=== PATIENT | male | born 1945 | race Caucasian/White ===

== ENCOUNTER 2017-05-14 16:56 | Emergency (ER) | payer OTHER ==
[2017-05-14 17:25] VITALS: BP 120/65; PULSE 100; TEMP 98.6; BMI 47.4
--- NOTE | 2017-05-14 17:25 | PDOC ---
Rapid Medical Evaluation Time Seen by Provider: 05/14/17 17:21 Medical Evaluation: Allergies Allergy/AdvReac Type Severity Reaction Status Date / Time No Known Drug Allergies Allergy Verified 08/05/15 10:30 05/14/17 17:21 I have performed a brief in-person evaluation of this patient. The patient presents with a chief complaint of:LUE weakness x few days, no pain Pertinent physical exam findings:unable to abduct arm past 60 degrees on active ROM only, denies pain, strength intact I have ordered the following:labs The patient will proceed to the ED for further evaluation.
[2017-05-14 18:11] LABS: HEMOGLOBIN 14.9 GM/dL (11.7-16.9)
[2017-05-14 18:34] LABS: BASO % 0.2 % (0-2.0); EOS % 1.6 % (0-4.5); HEMATOCRIT 46.5 % (35.4-49); LYMPH % 19.9 % (8-40); MCH 29.9 pg (25.7-33.7); MCHC 32.1 g/dl (32.0-35.9); MEAN CELL VOLUME 93.2 fl (80-96); MEAN PLT VOLUME 7.9 fl (7.5-11.1); MONO % 5.9 % (3.8-10.2); NEUT % 72.4 % (42.8-82.8); PLATELET COUNT 269 K/MM3 (134-434); RDW 13.9 % (11.9-15.9); WHITE BLOOD COUNT 12.3 K/mm3 (4.0-10.0)
[2017-05-14 18:44] LABS: ALBUMIN 3.5 g/dl (3.4-5.0); ANION GAP 9 (8-16); BLOOD UREA NITROGEN 22 mg/dL (7-18); CALCIUM 9.5 mg/dL (8.5-10.1); CHLORIDE 102 mmol/L (98-107); CO2 27 mmol/L (21-32); GLUCOSE,RANDOM 119 mg/dL (74-106); POTASSIUM 3.8 mmol/L (3.5-5.1); SGOT/AST 20 U/L (15-37); SODIUM 138 mmol/L (136-145)
[2017-05-14 18:47] LABS: ALK PHOS 103 U/L (45-117); BILIRUBIN,TOTAL 0.6 mg/dL (0.2-1.0); CREATININE 1.2 mg/dL (0.7-1.3); SGPT/ALT 27 U/L (12-78); TOT PROT 7.7 g/dl (6.4-8.2)
[2017-05-14 19:00] LABS: URINE APPEARANCE CLEAR; URINE BILIRUBIN NEGATIVE (NEGATIVE); URINE BLOOD 1+ (NEGATIVE); URINE COLOR LTYELLOW; URINE GLUCOSE (UA) NEGATIVE (NEGATIVE); URINE KETONE TRACE (NEGATIVE); URINE LEUK ESTERASE NEGATIVE (NEGATIVE); URINE NITRITE NEGATIVE (NEGATIVE); URINE PROTEIN NEGATIVE (NEGATIVE); URINE UROBILINOGEN NEGATIVE mg/dL (0.2-1.0)
[2017-05-14 20:01] LABS: EPI CELLS RARE /HPF (FEW); URINE BACTERIA RARE /hpf (NONE SEEN); URINE MUCUS RARE
--- NOTE | 2017-05-14 21:23 | PDOC ---
History of Present Illness - General History Source: Patient Exam Limitations: No Limitations - History of Present Illness Initial Comments: 05/14/17 22:22 Patient is a 72 year old male with a significant past medical history of CVD, DM , who presents to the ED with complaints of left arm weakness that began 2 days ago. Patient reports suddenly noticing weakness in his left arm stating he suddenly realized he could not raise his arm past his shoulder. Patient states he received an ECG from his new PCP and was referred to the ED for abnormal ECG. Patient currently denies any pain associated to his left arm weakness. Denies chest pain, SOB. Denies nausea, vomiting. Denies fevers, chills. Denies trauma to affected area. Denies any other symptoms. Allergies: None Social history: Lives alone. No smoking. No alcohol. No illicit drugs. Surgical history: acute [place] 11, pacemaker 12, triple bypass 11, coronary artery disease, PMD: Dr. Jeremiah Abreu Electrical/Instrument Technician: Dr. Henderson <Rico Luke - Last Filed: 05/14/17 22:22> <Emily Ghotra - Last Filed: 05/14/17 23:53> - General Chief Complaint: Weakness Stated Complaint: PCP SENT Time Seen by Provider: 05/14/17 17:21 Past History <Rcio Luke - Last Filed: 05/14/17 22:22> - Past Medical History Anemia: Yes Asthma: No Cancer: No Cardiac Disorders: Yes CVA: No COPD: No CHF: No Dementia: No Diabetes: Yes GI Disorders: Yes (ANEMIA,BENIGN NEOPLASM OF THE COLON) Disorders: No HTN: Yes Hypercholesterolemia: Yes Kidney Stones: Yes Liver Disease: No Seizures: No Thyroid Disease: No - Surgical History Abdominal Surgery: No Appendectomy: No Cardiac Surgery: Yes (TRIPLE BY PASS,PACEMAKER) Cholecystectomy: No Lung Surgery: No Neurologic Surgery: No Orthopedic Surgery: No - Suicide/Smoking/Psychosocial Hx Smoking Status: No Smoking History: Never smoked Have you smoked in the past 12 months: No Number of Cigarettes Smoked Daily: 0 Information on smoking cessation initiated: No Hx Alcohol Use: No Drug/Substance Use Hx: No Substance Use Type: None Hx Substance Use Treatment: No <Emily Ghotra - Last Filed: 05/14/17 23:53> - Past Medical History Allergies/Adverse Reactions: Allergies Allergy/AdvReac Type Severity Reaction Status Date / Time No Known Drug Allergies Allergy Verified 05/14/17 17:24 Home Medications: Ambulatory Orders Metoprolol Succinate [Toprol XL -] 50 mg PO DAILY 10/06/14 Simvastatin [Zocor -] 80 mg PO HS 10/06/14 Aspirin [ASA -] 81 mg PO DAILY 08/05/15 Oxycodone HCl/Acetaminophen [Percocet 5-325 mg Tablet] 1 tab PO Q4H PRN Glyburide [Micronase -] 2.5 mg PO DAILY #30 tablet 08/07/15 Tamsulosin HCl [Flomax -] 0.4 mg PO DAILY@0830 #30 cap.er.24h 08/07/15 Review of Systems - Review of Systems Able to Perform ROS?: Yes Comments:: 05/14/17 22:22 CONSTITUTIONAL: Absent: fever, chills, diaphoresis, generalized weakness, malaise, loss of appetite HEENT: Absent: rhinorrhea, nasal congestion, throat pain, throat swelling, difficulty swallowing, mouth swelling, ear pain, eye pain, visual Changes CARDIOVASCULAR: Absent: chest pain, syncope, palpitations, irregular heart rate, lightheadedness , peripheral edema RESPIRATORY: Absent: cough, shortness of breath, dyspnea with exertion, orthopnea, wheezing, stridor, hemoptysis GASTROINTESTINAL: Absent: abdominal pain, abdominal distension, nausea, vomiting, diarrhea, constipation, melena, hematochezia GENITOURINARY: Absent: dysuria, frequency, urgency, hesitancy, hematuria, flank pain, genital pain MUSCULOSKELETAL: +Left arm weakness. Absent: myalgia, arthralgia, joint swelling SKIN: Absent: rash, itching, pallor HEMATOLOGIC/IMMUNOLOGIC: Absent: easy bleeding, easy bruising, lymphadenopathy, frequent infections ENDOCRINE: Absent: unexplained weight gain, unexplained weight loss, heat intolerance, cold intolerance NEUROLOGIC: Absent: headache, focal weakness or paresthesias, dizziness, unsteady gait, seizure, mental status changes, bladder or bowel incontinence PSYCHIATRIC: Absent: anxiety, depression, suicidal or homicidal ideation, hallucinations. All Other Systems: Reviewed and Negative <Rico Luke - Last Filed: 05/14/17 22:22> *Physical Exam - Vital Signs Last Vital Signs Temp Pulse Resp BP Pulse Ox 98.6 F 100 H 19 120/65 100 05/14/17 17:22 05/14/17 17:22 05/14/17 17:22 05/14/17 17:22 05/14/17 17:22 - Physical Exam Comments: 05/14/17 22:23 GENERAL: Well developed, well nourished. Awake and alert. No acute distress. HEENT: Normocephalic, atraumatic. PERRLA, EOMI. No conjunctival pallor. Sclera are non- icteric. Moist mucous membranes. Oropharynx is clear. NECK: Supple. Full ROM. No JVD. Carotid pulses 2+ and symmetric, without bruits. No thyromegaly. No lymphadenopathy. CARDIOVASCULAR: Regular rate and rhythm. No murmurs, rubs, or gallops. Distal pulses are 2+ and symmetric. PULMONARY: No evidence of respiratory distress. Lungs clear to auscultation bilaterally. No wheezing, rales or rhonchi. ABDOMINAL: Soft. Non-tender. Non-distended. No rebound or guarding. No organomegaly. Normoactive bowel sounds. MUSCULOSKELETAL Normal range of motion at all joints. No bony deformities or tenderness. No CVA tenderness. EXTREMITIES: +Left arm weakness. No cyanosis. No clubbing. No edema. No calf tenderness. SKIN: Warm and dry. Normal capillary refill. No rashes. No jaundice. NEUROLOGICAL: +No slurred speech. No neglect. No sight changes. No facial droop. Alert, awake, appropriate. Cranial nerves 2-12 intact. No deficits to light touch and temperature in face, upper extremities and lower extremities. No motor deficits in the in face, upper extremities and lower extremities. Normoreflexic in the upper and lower extremities. Normal speech. Toes are down- going bilaterally. Gait is normal without ataxia. PSYCHIATRIC: Cooperative. Good eye contact. Appropriate mood and affect. <Rico Luke - Last Filed: 05/14/17 22:22> - Vital Signs Last Vital Signs Temp Pulse Resp BP Pulse Ox 98.6 F 100 H 19 120/65 100 05/14/17 17:22 05/14/17 17:22 05/14/17 17:22 05/14/17 17:22 05/14/17 17:22 <Emily Ghotra - Last Filed: 05/14/17 23:53> ED Treatment Course - LABORATORY CBC & Chemistry Diagram: 05/14/17 17:50 05/14/17 17:50 - ADDITIONAL ORDERS Additional order review: Laboratory Results 05/14/17 05/14/17 17:50 17:40 Sodium 138 Potassium 3.8 Chloride 102 Carbon Dioxide 27 Anion Gap 9 BUN 22 H D Creatinine 1.2 D Creat Clearance w eGFR 59.35 Random Glucose 119 H Calcium 9.5 Total Bilirubin 0.6 AST 20 D ALT 27 D Alkaline Phosphatase 103 Total Protein 7.7 Albumin 3.5 Urine Color Ltyellow Urine Appearance Clear Urine pH 5.0 D Ur Specific [place] 1.019 Urine Protein Negative Urine Glucose (UA) Negative Urine Ketones Trace H Urine Blood 1+ H Urine Nitrite Negative Urine Bilirubin Negative Urine Urobilinogen Negative Ur Leukocyte Esterase Negative Urine WBC (Auto) 3 Urine RBC (Auto) 2 Ur Epithelial Cells Rare Urine Bacteria Rare Urine Mucus Rare 05/14/17 17:50 RBC 5.00 MCV 93.2 MCHC 32.1 RDW 13.9 MPV 7.9 Neutrophils % 72.4 Lymphocytes % 19.9 Monocytes % 5.9 Eosinophils % 1.6 Basophils % 0.2 <Rico Luke - Last Filed: 05/14/17 22:22> - LABORATORY CBC & Chemistry Diagram: 05/14/17 17:50 05/14/17 17:50 - ADDITIONAL ORDERS Additional order review: Laboratory Results 05/14/17 05/14/17 17:50 17:40 Sodium 138 Potassium 3.8 Chloride 102 Carbon Dioxide 27 Anion Gap 9 BUN 22 H D Creatinine 1.2 D Creat Clearance w eGFR 59.35 Random Glucose 119 H Calcium 9.5 Total Bilirubin 0.6 AST 20 D ALT 27 D Alkaline Phosphatase 103 Total Protein 7.7 Albumin 3.5 Urine Color Ltyellow Urine Appearance Clear Urine pH 5.0 D Ur Specific [place] 1.019 Urine Protein Negative Urine Glucose (UA) Negative Urine Ketones Trace H Urine Blood 1+ H Urine Nitrite Negative Urine Bilirubin Negative Urine Urobilinogen Negative Ur Leukocyte Esterase Negative Urine WBC (Auto) 3 Urine RBC (Auto) 2 Ur Epithelial Cells Rare Urine Bacteria Rare Urine Mucus Rare 05/14/17 17:50 RBC 5.00 MCV 93.2 MCHC 32.1 RDW 13.9 MPV 7.9 Neutrophils % 72.4 Lymphocytes % 19.9 Monocytes % 5.9 Eosinophils % 1.6 Basophils % 0.2 <Emily Ghotra - Last Filed: 05/14/17 23:53> Medical Decision Making - Medical Decision Making 05/14/17 23:26 82-year-old male saw his primary care doctor, Dr. Moore today [facility]. Because of concern of changes on EKG he was told to come to the emergency department. Patient denies any chest pain or shortness breath. There are narrowed exertional dyspnea. Past medical history significant for coronary artery disease, diabetes, hypertension. 72-year-old man, looking slightly disheveled ambulates at baseline with a cane said he came into the ER because he was told to come here for --EKG that shows paced rhythm at 87 bpm. When this is compared to a prior EKG in 08/05/2015. It again was a paced rhythm. Cardiac enzymes are negative. His state highway police officer is Dr. Hi Meyers <Emily Ghotra - Last Filed: 05/14/17 23:53> *DC/Admit/Observation/Transfer - Attestations Scribe Attestion: 05/14/17 22:24 Documentation prepared by Rico Luke, acting as medical physics professor for Emily Ghotra MD/DO. <Rico Luke - Last Filed: 05/14/17 22:22> <Emily Ghotra - Last Filed: 05/14/17 23:53> Diagnosis at time of Disposition: Left arm weakness - Discharge Dispostion Disposition: HOME Condition at time of disposition: Stable - Referrals Referrals: Jeremiah Abreu MD [Primary Care Provider] - - Patient Instructions Printed Discharge Instructions: DI for Arm Pain Additional Instructions: Please followup with your state highway police officer and also DR Abreu. Take your lab results and ct scan results with you when you see your doctor - Post Discharge Activity
--- NOTE | 2017-05-15 08:06 | EKG ---
Test Reason : Blood Pressure : / mmHG Vent. Rate : 086 BPM Atrial Rate : 086 BPM P-R Int : 240 ms QRS Dur : 156 ms QT Int : 420 ms P-R-T Axes : 073 -82 069 degrees QTc Int : 502 ms Atrial-sensed ventricular-paced rhythm with prolonged AV conduction ABNORMAL ECG WHEN COMPARED WITH ECG OF 05-AUG-2015 12:03, VENT. RATE HAS INCREASED BY 15 BPM Confirmed by OLGA DIAZ, DEVENDRA ([id number]) on 05/15/2017 8:06:09 AM Referred By: Confirmed By:DEVENDRA ESPINOZA MD
== END 2017-05-15 00:32 | disposition home or self-care (01) ==
LOC: JER 16:56
DX: M62.81 Muscle weakness (generalized) (principal); I25.10 Atherosclerotic heart disease of native coronary artery without angina pectoris; I10 Essential (primary) hypertension; Z95.1 Presence of aortocoronary bypass graft; E11.9 Type 2 diabetes mellitus without complications; E78.00 Pure hypercholesterolemia, unspecified; Z95.0 Presence of cardiac pacemaker; Z87.442 Personal history of urinary calculi
CPT/HCPCS: 36415; 70450-TC; 73030-TC-LT; 80053; 81003; 81015; 82550; 82553; 84484; 85025; 93005; 93010; 99282-25

== ENCOUNTER 2018-02-03 04:33 | Emergency (ER) | payer OTHER ==
[2018-02-03 05:07] VITALS: BMI 39.2
[2018-02-03] MEDS ORDERED: ACETAMINOPHEN 1000 MG/100 ML VIAL (NON FORMULARY) IVPB ONE (05:32)
[2018-02-03] MEDS ORDERED: SODIUM CHLORIDE 0.9% 500 ML INFUS.BAG IV ONE (05:35)
--- NOTE | 2018-02-03 05:49 | PDOC ---
History of Present Illness - General Chief Complaint: Pain, Acute Stated Complaint: R/O KIDNEY STONES Time Seen by Provider: 02/03/18 05:34 History Source: Patient Exam Limitations: No Limitations - History of Present Illness Initial Comments: 02/03/18 05:41 Patient is a 72-year-old male history of kidney stones, DM2, HTN, CAD, NM, HLD, CABG, pacemaker, complaining of "I think I have a kidney stone". Patient states for about 2-3 hours he started to have some suprapubic pain which progressively worsened and radiated to his right flank. His pain he says 5/10 dull associated nausea and vomiting 1 episode. He took nothing for the pain and presents here for evaluation. He denies fever, chills. PMD: Dr. Reyes URO: Dr. Lomax PMHX: as above PSCOHX: Neg cig, neg drugs, neg etoh ALL: NKDA GENERAL/CONSTITUTIONAL: [No fever or chills. No weakness. No weight change.] HEAD, EYES, EARS, NOSE AND THROAT: [No change in vision. No ear pain or discharge. No sore throat.] CARDIOVASCULAR: [No chest pain or shortness of breath.] RESPIRATORY: [No cough, wheezing, or hemoptysis.] GASTROINTESTINAL: [No nausea, vomiting, diarrhea or constipation. No rectal bleeding.] GENITOURINARY: [No dysuria, frequency, or change in urination.] MUSCULOSKELETAL: [No joint or muscle swelling or pain. No neck or back pain.] SKIN AND BREASTS: [No rash or easy bruising.] NEUROLOGIC: [No headache, vertigo, loss of consciousness, or loss of sensation.] PSYCHIATRIC: [No depression or anxiety.] ENDOCRINE: [No increased thirst. No abnormal weight change.] HEMATOLOGIC/LYMPHATIC: [No anemia, easy bleeding, or history of blood clots.] ALLERGIC/IMMUNOLOGIC: [No hives or skin allergy. No latex allergy.] GENERAL: [The patient is awake, alert, and fully oriented, in no acute distress. ] HEAD: [Normal with no signs of trauma.] EYES: [Pupils equal, round and reactive to light, extraocular movements intact, sclera anicteric, conjunctiva clear.] ENT: [Ears normal, nares patent, oropharynx clear without exudates. Moist mucous membranes.] NECK: [Normal range of motion, supple without lymphadenopathy, JVD, or masses.] LUNGS: [Breath sounds equal, clear to auscultation bilaterally. No wheezes, and no crackles.] HEART: [Regular rate and rhythm, normal S1 and S2 without murmur, rub.] ABDOMEN: [Soft, (+) tenderness suprapubic and right flank, normoactive bowel sounds. No guarding, no rebound. No masses.] EXTREMITIES: [Normal range of motion, no edema. No clubbing or cyanosis. No cords, erythema, or tenderness.] NEUROLOGICAL: [Cranial nerves II through XII grossly intact. Normal speech, normal gait.] PSYCH: [Normal mood, normal affect.] SKIN: [Warm, Dry, normal turgor, no rashes or lesions noted.] Past History - Past Medical History Allergies/Adverse Reactions: Allergies Allergy/AdvReac Type Severity Reaction Status Date / Time No Known Drug Allergies Allergy Verified 02/03/18 05:06 Home Medications: Ambulatory Orders Metoprolol Succinate [Toprol XL -] 50 mg PO DAILY 10/06/14 Simvastatin [Zocor -] 80 mg PO HS 10/06/14 Aspirin [ASA -] 81 mg PO DAILY 08/05/15 Glyburide [Micronase -] 2.5 mg PO DAILY #30 tablet 08/07/15 Tamsulosin HCl [Flomax -] 0.4 mg PO DAILY@0830 #30 cap.er.24h 08/07/15 Anemia: Yes Asthma: No Cancer: No Cardiac Disorders: Yes CVA: No COPD: No CHF: No Dementia: No Diabetes: Yes GI Disorders: Yes (ANEMIA,BENIGN NEOPLASM OF THE COLON) Disorders: No HTN: Yes Hypercholesterolemia: Yes Kidney Stones: Yes Liver Disease: No Seizures: No Thyroid Disease: No - Surgical History Abdominal Surgery: No Appendectomy: No Cardiac Surgery: Yes (TRIPLE BY PASS,PACEMAKER) Cholecystectomy: No Lung Surgery: No Neurologic Surgery: No Orthopedic Surgery: No - Suicide/Smoking/Psychosocial Hx Smoking Status: No Smoking History: Never smoked Have you smoked in the past 12 months: No Number of Cigarettes Smoked Daily: 0 Information on smoking cessation initiated: No Hx Alcohol Use: No Drug/Substance Use Hx: No Substance Use Type: None Hx Substance Use Treatment: No *Physical Exam - Vital Signs Last Vital Signs Temp Pulse Resp BP Pulse Ox 97.4 F L 90 19 160/77 97 02/03/18 04:35 02/03/18 04:35 02/03/18 04:35 02/03/18 04:35 02/03/18 04:35 ED Treatment Course - LABORATORY CBC & Chemistry Diagram: 02/03/18 05:30 02/03/18 05:30 Medical Decision Making - Medical Decision Making 02/03/18 05:41 Patient is a 72-year-old male history of kidney stones, DM2, HTN, CAD, NM, HLD, CABG, pacemaker, complaining of "I think I have a kidney stone". r/o renal colic , r/o uti will get labs, ua, tylenol, IVF re-eval for imaging 02/03/18 07:08 Laboratory Tests 02/03/18 02/03/18 05:30 05:30 WBC 15.8 H Hgb 14.5 Hct 43.0 Plt Count 267 Sodium 136 Potassium 4.6 Chloride 100 Carbon Dioxide 31 Anion Gap 5 L BUN 24 H Creatinine 1.8 H Random Glucose 161 H labs reviewed will send for noncon ctap urine pending endorsed to day team *DC/Admit/Observation/Transfer Diagnosis at time of Disposition: Abdominal pain Qualifiers: Abdominal location: right lower quadrant Qualified Code(s): R10.31 - Right lower quadrant pain - Discharge Dispostion Condition at time of disposition: Stable - Referrals Referrals: Jeremiah Abreu MD [Primary Care Provider] - - Patient Instructions - Post Discharge Activity
[2018-02-03 05:56] LABS: BASO % 0.4 % (0-2.0); EOS % 0.2 % (0-4.5); HEMOGLOBIN 14.5 GM/dL (11.7-16.9); LYMPH % 9.3 % (8-40); MCH 31.4 pg (25.7-33.7); MCHC 33.8 g/dl (32.0-35.9); MEAN PLT VOLUME 7.4 fl (7.5-11.1); MONO % 6.5 % (3.8-10.2); NEUT % 83.6 % (42.8-82.8); PLATELET COUNT 267 K/MM3 (134-434); RBC 4.63 M/mm3 (4.00-5.60); RDW 14.3 % (11.9-15.9); WHITE BLOOD COUNT 15.8 K/mm3 (4.0-10.0)
[2018-02-03 06:28] LABS: ANION GAP 5 MMOL/L (8-16); BLOOD UREA NITROGEN 24 mg/dL (7-18); CALCIUM 9.4 mg/dL (8.5-10.1); CHLORIDE 100 mmol/L (98-107); CO2 31 mmol/L (21-32); CREATININE 1.8 mg/dL (0.55-1.3); GLUCOSE,RANDOM 161 mg/dL (74-106); POTASSIUM 4.6 mmol/L (3.5-5.1); SODIUM 136 mmol/L (136-145)
[2018-02-03 08:18] LABS: URINE APPEARANCE CLEAR; URINE BILIRUBIN NEGATIVE (<2.0 mg/dL); URINE COLOR STRAW; URINE GLUCOSE (UA) 3+ (NEGATIVE); URINE KETONE TRACE (NEGATIVE); URINE LEUK ESTERASE NEGATIVE (NEGATIVE); URINE NITRITE NEGATIVE (NEGATIVE); URINE PROTEIN NEGATIVE (NEGATIVE); URINE UROBILINOGEN NEGATIVE mg/dL (0.2-1.0)
[2018-02-03 08:30] LABS: EPI CELLS RARE /HPF (FEW); URINE MUCUS RARE
[2018-02-03 10:20] VITALS: BP 143/70; PULSE 83; TEMP 97.7
== END 2018-02-03 10:55 | disposition home or self-care (01) ==
LOC: JER 04:33
PROC: 3E033NZ Introduction of Analgesics, Hypnotics, Sedatives into Peripheral Vein, Percutaneous Approach (ICD-10-PCS; principal; 2018-02-03)
DX: R10.9 Unspecified abdominal pain (principal); I25.10 Atherosclerotic heart disease of native coronary artery without angina pectoris; I10 Essential (primary) hypertension; Z95.1 Presence of aortocoronary bypass graft; Z95.0 Presence of cardiac pacemaker; E78.00 Pure hypercholesterolemia, unspecified; E11.9 Type 2 diabetes mellitus without complications; Z79.84 Long term (current) use of oral hypoglycemic drugs
CPT/HCPCS: 36415; 74176; 80048; 81003; 81015; 85025; 87086; 96374; 99284-25; J0131

== ENCOUNTER 2018-06-16 07:19 | Emergency (ER) | payer OTHER ==
[2018-06-16 07:36] VITALS: BP 132/59; PULSE 77; TEMP 97.6; BMI 38.9
--- NOTE | 2018-06-16 08:31 | PDOC ---
History of Present Illness - General Chief Complaint: Edema Stated Complaint: DIFFICULTY WALKING Time Seen by Provider: 06/16/18 07:50 History Source: Patient Exam Limitations: Clinical Condition - History of Present Illness Initial Comments: 06/16/18 08:25 Morbid obese patient with history of coronary artery disease with triple bypass and diabetes present with complaint of weakness in bilateral legs over 5 months now. Patient also reported his legs feel tired after walking half a block and has been persistent for 5 months now. Patient reports he did not come in early because also softball season and didn't have the time to come until now. Patient denies any pain, denies shortness of breath, chest pain, palpitations, dizziness. Denies any other symptoms Timing/Duration: other (5 months) Past History - Past Medical History Allergies/Adverse Reactions: Allergies Allergy/AdvReac Type Severity Reaction Status Date / Time No Known Drug Allergies Allergy Verified 02/03/18 05:06 Home Medications: Ambulatory Orders Metoprolol Succinate [Toprol XL -] 50 mg PO DAILY 10/06/14 Simvastatin [Zocor -] 80 mg PO HS 10/06/14 Aspirin [ASA -] 81 mg PO DAILY 08/05/15 Glyburide [Micronase -] 2.5 mg PO DAILY #30 tablet 08/07/15 Tamsulosin HCl [Flomax -] 0.4 mg PO HS #30 cap.er.24h 02/03/18 Anemia: Yes Asthma: No Cancer: No Cardiac Disorders: Yes CVA: No COPD: No CHF: No Dementia: No Diabetes: Yes GI Disorders: Yes (ANEMIA,BENIGN NEOPLASM OF THE COLON) Disorders: No HTN: Yes Hypercholesterolemia: Yes Kidney Stones: Yes Liver Disease: No Seizures: No Thyroid Disease: No - Surgical History Abdominal Surgery: No Appendectomy: No Cardiac Surgery: Yes (TRIPLE BY PASS,PACEMAKER) Cholecystectomy: No Lung Surgery: No Neurologic Surgery: No Orthopedic Surgery: No - Immunization History Immunization Up to Date: No - Suicide/Smoking/Psychosocial Hx Smoking Status: No Smoking History: Never smoked Have you smoked in the past 12 months: No Number of Cigarettes Smoked Daily: 0 Information on smoking cessation initiated: No Hx Alcohol Use: No Drug/Substance Use Hx: No Substance Use Type: None Hx Substance Use Treatment: No Review of Systems - Review of Systems Able to Perform ROS?: Yes Is the patient limited Kiswahili proficient: No Constitutional: Yes: Weakness (b/l legs). No: Chills, Fever, Malaise HEENTM: No: Symptoms Reported, See HPI, Eye Pain, Blurred Vision, Tearing, Recent change in vision, Double Vision, Cataracts, Ear Pain, Ocular Prothesis, Ear Discharge, Nose Pain, Nose Congestion, Tinnitus, Nose Bleeding, Hearing Loss , Throat Pain, Throat Swelling, Mouth Pain, Dental Problems, Difficulty Swallowing, Mouth Swelling, Other Respiratory: No: Symptoms reported, See HPI, Cough, Orthopnea, Shortness of Breath, SOB with Exertion, SOB at Rest, Stridor, Wheezing, Productive cough, Hemoptysis, Other Cardiac (ROS): No: Symptoms Reported, See HPI, Chest Pain, Edema, Irregular Heart Rate, Lightheadedness, Palpitations, Syncope, Chest Tightness, Other ABD/GI: No: Nausea, Vomiting Musculoskeletal: Yes: Muscle Weakness (b/l legs). No: Muscle Pain Integumentary: No: Symptoms Reported All Other Systems: Reviewed and Negative *Physical Exam - Vital Signs Last Vital Signs Temp Pulse Resp BP Pulse Ox 97.6 F 77 16 132/59 L 96 06/16/18 07:33 06/16/18 07:33 06/16/18 07:33 06/16/18 07:33 06/16/18 07:33 - Physical Exam Comments: 06/16/18 08:28 GENERAL: Well developed, well nourished. Awake and alert. No acute distress. CARDIOVASCULAR: Regular rate and rhythm. No murmurs, rubs, or gallops. PULMONARY: No evidence of respiratory distress. Lungs clear to auscultation bilaterally. No wheezing, rales or rhonchi. ABDOMINAL: Soft. Non-tender. Non-distended. No rebound or guarding. No organomegaly. Normoactive bowel sounds MUSCULOSKELETAL : mild tenderness over posterior right calf. No bony deformities EXTREMITIES: Bilateral peripheral dependent edema with mild discoloration to lateral aspect of bilateral ankles. No cyanosis. No clubbing. No pitting edema. Mild right calf tenderness. No increased warmth or erythema to bilateral lower extremities. SKIN: Warm and dry. Normal capillary refill. NEUROLOGICAL: Alert, awake, appropriate. No motor deficits in the lower extremities. Gait is normal without ataxia. PSYCHIATRIC: Cooperative. Good eye contact. Appropriate mood and affect. General Appearance: Yes: Nourished, Appropriately Dressed. No: Apparent Distress Moderate Sedation - Procedure Monitoring Vital Signs: Procedure Monitoring Vital Signs Temperature 97.6 F 06/16/18 07:33 Pulse Rate 77 06/16/18 07:33 Respiratory Rate 16 06/16/18 07:33 Blood Pressure 132/59 L 06/16/18 07:33 O2 Sat by Pulse Oximetry (%) 96 06/16/18 07:33 ED Treatment Course - LABORATORY CBC & Chemistry Diagram: 06/16/18 09:40 06/16/18 09:40 - RADIOLOGY Radiology Studies Ordered: Category Date Time Status DUPLEX VASCUL US-1 LEG [US] Stat Ultrasound 06/16/18 08:07 Ordered Medical Decision Making - Medical Decision Making 06/16/18 08:29 Patient with history of coronary artery disease and diabetes present with complaint of weakness of bilateral lower extremity for 5 months with no other symptoms. Exam significant for mild bilateral edema with no pitting and mild right calf muscle tenderness with discoloration to skin of bilateral ankles consistent with venous insufficiency. Symptoms likely venous insufficiency versus CHF versus DVT. Less likely DVT due to no increased warmth or erythema. CBC and chemistry and BNP labs ordered. Doppler of right lower extremity ordered to rule out DVT 06/16/18 12:54 CBC with no acute finding. Chemistry lab were no acute findings. Elevated BNP labs. Symptoms likely from undiagnosed CHF. Duplex shows no DVT. Stable for discharge with outpatient treatment with truck trailer mechanic given asymptomatic now. *DC/Admit/Observation/Transfer Diagnosis at time of Disposition: Peripheral edema CHF (congestive heart failure) Qualifiers: Heart failure type: unspecified Heart failure chronicity: unspecified Qualified Code(s): I50.9 - Heart failure, unspecified - Discharge Dispostion Disposition: HOME Condition at time of disposition: Stable Decision to Admit order: No - Referrals Referrals: Roni Reyes MD [Primary Care Provider] - Aakash Henderson MD [Staff Physician] - - Patient Instructions Printed Discharge Instructions: DI for Peripheral Edema -- Bilateral Additional Instructions: Ultrasound shows no DVT, labwork shows elevated labs which could indicate heart failure .Follow-up with referred truck trailer mechanic as soon as possible - Post Discharge Activity
[2018-06-16 10:06] LABS: BASO % 0.3 % (0-2.0); HEMATOCRIT 38.7 % (35.4-49); HEMOGLOBIN 13.2 GM/dL (11.7-16.9); LYMPH % 24.5 % (8-40); MCHC 34.1 g/dl (32.0-35.9); MEAN PLT VOLUME 7.2 fl (7.5-11.1); MONO % 6.6 % (3.8-10.2); NEUT % 65.6 % (42.8-82.8); PLATELET COUNT 214 K/MM3 (134-434); RBC 4.11 M/mm3 (4.00-5.60); RDW 14.8 % (11.9-15.9)
[2018-06-16 10:17] LABS: ALBUMIN 3.4 g/dl (3.4-5.0); ALK PHOS 106 U/L (45-117); ANION GAP 8 MMOL/L (8-16); BILIRUBIN,TOTAL 0.6 mg/dL (0.2-1); BLOOD UREA NITROGEN 25 mg/dL (7-18); CALCIUM 8.8 mg/dL (8.5-10.1); CHLORIDE 100 mmol/L (98-107); CO2 28 mmol/L (21-32); CREATININE 1.4 mg/dL (0.55-1.3); GLUCOSE,RANDOM 101 mg/dL (74-106); N-TERMINAL BNP 359.9 pg/ml (5-125); POTASSIUM 4.2 mmol/L (3.5-5.1); SGOT/AST 22 U/L (15-37); SGPT/ALT 26 U/L (13-61); SODIUM 135 mmol/L (136-145); TOT PROT 7.5 g/dl (6.4-8.2)
== END 2018-06-16 14:18 | disposition home or self-care (01) ==
LOC: JER 07:19
DX: I25.10 Atherosclerotic heart disease of native coronary artery without angina pectoris (principal); I11.0 Hypertensive heart disease with heart failure; I50.9 Heart failure, unspecified; E11.9 Type 2 diabetes mellitus without complications; Z79.84 Long term (current) use of oral hypoglycemic drugs; E78.00 Pure hypercholesterolemia, unspecified; Z95.1 Presence of aortocoronary bypass graft
CPT/HCPCS: 36415; 80053; 83880; 85025; 93971-TC; 99281-25

== ENCOUNTER 2018-12-24 05:33 | Inpatient (IN) | payer OTHER ==
[2018-12-24] MEDS ORDERED: ACETAMINOPHEN 1000 MG/100 ML VIAL (NON FORMULARY) IVPB ONE (07:33)
[2018-12-24] MEDS ORDERED: ACETAMINOPHEN INJECTION 100 ML IVPB ONE (07:49)
--- NOTE | 2018-12-24 08:08 | PDOC ---
History of Present Illness - General Chief Complaint: Pain, Acute Stated Complaint: BSNCK PAIN Time Seen by Provider: 12/24/18 07:29 History Source: Patient - History of Present Illness Timing/Duration: reports: constant Quality: reports: moderate Past History - Past Medical History Allergies/Adverse Reactions: Allergies Allergy/AdvReac Type Severity Reaction Status Date / Time No Known Drug Allergies Allergy Verified 12/24/18 07:23 Home Medications: Ambulatory Orders Metoprolol Succinate [Toprol XL -] 50 mg PO DAILY 10/06/14 Simvastatin [Zocor -] 80 mg PO HS 10/06/14 Aspirin [ASA -] 81 mg PO DAILY 08/05/15 Glyburide [Micronase -] 2.5 mg PO DAILY #30 tablet 08/07/15 Tamsulosin HCl [Flomax -] 0.4 mg PO HS #30 cap.er.24h 02/03/18 metFORMIN HCL [Metformin HCl] 500 mg PO BID 12/24/18 Anemia: Yes Asthma: No Cancer: No Cardiac Disorders: Yes CVA: No COPD: No CHF: No Dementia: No Diabetes: Yes GI Disorders: Yes (ANEMIA,BENIGN NEOPLASM OF THE COLON) Disorders: No HTN: Yes Hypercholesterolemia: Yes Kidney Stones: Yes Liver Disease: No Seizures: No Thyroid Disease: No - Surgical History Abdominal Surgery: No Appendectomy: No Cardiac Surgery: Yes (TRIPLE BY PASS,PACEMAKER) Cholecystectomy: No Lung Surgery: No Neurologic Surgery: No Orthopedic Surgery: No - Immunization History Immunization Up to Date: No - Suicide/Smoking/Psychosocial Hx Smoking Status: No Smoking History: Unknown if ever smoked Have you smoked in the past 12 months: No Number of Cigarettes Smoked Daily: 0 Hx Alcohol Use: No Drug/Substance Use Hx: No Substance Use Type: None Hx Substance Use Treatment: No Review of Systems - Review of Systems Constitutional: No: Chills, Fever Respiratory: No: Shortness of Breath Cardiac (ROS): No: Chest Pain ABD/GI: No: Blood Streaked Bowels, Constipated, Diarrhea, Nausea, Rectal Bleeding, Vomiting, Abdominal cramping, Tarry Stools : Yes: Flank Pain. No: Burning, Dysuria, Discharge, Frequency, Hematuria *Physical Exam - Vital Signs Last Vital Signs Temp Pulse Resp BP Pulse Ox 97.9 F 87 16 134/49 L 95 12/24/18 07:05 12/24/18 07:05 12/24/18 07:05 12/24/18 07:05 12/24/18 07:05 - Physical Exam General Appearance: Yes: Appropriately Dressed. No: Apparent Distress HEENT: positive: Normal Voice Neck: positive: Supple Respiratory/Chest: positive: Lungs Clear, Normal Breath Sounds. negative: Respiratory Distress Cardiovascular: positive: Regular Rate, S1, S2 Gastrointestinal/Abdominal: positive: Normal Bowel Sounds, Soft. negative: Tender, Pulsatile Mass, Distended, Guarding, Rebound Musculoskeletal: negative: CVA Tenderness, Vertebral Tenderness Extremity: positive: Normal Inspection Integumentary: positive: Dry, Warm Neurologic: positive: Fully Oriented, Alert, Normal Mood/Affect ED Treatment Course - LABORATORY CBC & Chemistry Diagram: 12/24/18 08:00 12/24/18 07:38 - RADIOLOGY Radiology Studies Ordered: Category Date Time Status ABDOMEN & PELVIS CT W/O CONTR [CT] Stat CT Scan 12/24/18 07:33 Ordered Medical Decision Making - Medical Decision Making 12/24/18 08:05 73-year-old male, history of anemia, diabetes, hypertension, HLD, triple bypass , renal stones, s/p surgery remotely, presents with R flank pain since yesterday , constant, unable to describe, 5/10, better when heat applied. No n/v/f/c or dysuria, hematuria. States pain somewhat similar to prior renal stones see exam R/o recurrent renal colic Stable and in NAD w/ unremarkable exam -pain control -labs -CT 12/24/18 09:36 CT read as acute right obstructive uropathy secondary to calcified stone in distal right UVJ with hydroureter and hydronephrosis. UA with trace leuks with 12 wbc and >1 bacteria. Creatinine 2 which is not new for patient. K wnl. Pt continues to report of some pain. Patient known to Dr. Bazan of urology, will contact Felicia to discuss disposition 12/24/18 10:[address] Bustamante who was made aware of the CT findings and labs. States if patient's pain is controlled, can be discharged to follow-up with him in office today or tomorrow 12/24/18 11:51 Pt continues to complain of some R flank pain despite multiple attempts at control pain. Will admit at this time. Will place consult for Dr. Bustamante *DC/Admit/Observation/Transfer Diagnosis at time of Disposition: Renal colic on right side Hydronephrosis Qualifiers: Hydronephrosis type: unspecified Qualified Code(s): N13.30 - Unspecified hydronephrosis - Discharge Dispostion Condition at time of disposition: Stable Decision to Admit order: Yes - Referrals Referrals: Roni Reyes MD [Primary Care Provider] - - Patient Instructions - Post Discharge Activity
[2018-12-24 08:23] LABS: BASO % 0.5 % (0-2.0); HEMATOCRIT 37.9 % (35.4-49); HEMOGLOBIN 12.6 GM/dL (11.7-16.9); LYMPH % 14.1 % (8-40); MCH 31.4 pg (25.7-33.7); MCHC 33.2 g/dl (32.0-35.9); MEAN CELL VOLUME 94.5 fl (80-96); MEAN PLT VOLUME 7.3 fl (7.5-11.1); MONO % 4.4 % (3.8-10.2); PLATELET COUNT 350 K/MM3 (134-434); RBC 4.01 M/mm3 (4.00-5.60)
[2018-12-24 08:51] LABS: ALBUMIN 3.1 g/dl (3.4-5.0); BILIRUBIN,TOTAL 0.6 mg/dL (0.2-1); BLOOD UREA NITROGEN 23.5 mg/dL (7-18); CALCIUM 9.2 mg/dL (8.5-10.1); POTASSIUM 4.4 mmol/L (3.5-5.1); TOT PROT 7.5 g/dl (6.4-8.2)
[2018-12-24 09:06] LABS: EPI CELLS 3.5 /HPF (0-5/HPF); HYALINE CASTS 4 /lpf (0-8); PH,URINE 5.5 (5.0-8.0); URINE APPEARANCE CLOUDY; URINE BACTERIA 1.9 /hpf (NEGATIVE); URINE BILIRUBIN NEGATIVE (NEGATIVE); URINE COLOR YELLOW; URINE GLUCOSE (UA) 3+ (NEGATIVE); URINE KETONE NEGATIVE (NEGATIVE); URINE LEUK ESTERASE TRACE (NEGATIVE); URINE NITRITE NEGATIVE (NEGATIVE); URINE PROTEIN TRACE (NEGATIVE); URINE RBC 32 /hpf (0-4); URINE UROBILINOGEN 0.2 mg/dL (0.2-1.0); URINE WBC 12 /hpf (0-5)
[2018-12-24] MEDS ORDERED: traMADol HCL 50 MG TABLET PO ONE (09:38)
[2018-12-24] MEDS ORDERED: traMADol HCL 50 MG TABLET ONE (09:43)
[2018-12-24] MEDS ORDERED: morphine CARPU-JECT 4 MG/1 ML DISP.SYRIN IVPUSH ONE (10:31)
[2018-12-24] MEDS ORDERED: MORPHINE SULFATE 2 MG/ML VIAL ONE (10:47)
[2018-12-24] MEDS ORDERED: KETOROLAC TROMETHAMINE 15 MG/ML VIAL IVPUSH PRN (15:21)
[2018-12-24] MEDS ORDERED: ACETAMINOPHEN 325 MG TABLET (FP) PO PRN (15:21)
[2018-12-24] MEDS ORDERED: PROCHLORPERAZINE INJECTION 10 MG/2 ML VIAL IVPB PRN (15:26)
[2018-12-24] MEDS ORDERED: morphine CARPU-JECT 2 MG/1 ML DISP.SYRIN IVPUSH PRN (15:43)
--- NOTE | 2018-12-24 15:47 | HP ---
CHIEF COMPLAINT: R Flank Pain PCP: HISTORY OF PRESENT ILLNESS: 73 y/o M with PMHx of CAD, Triple Bypass, NIDDM, HTN, HLD, Obesity and Nephrolithiasis presents with R Flank Pain. Patient was recently admitted to [facility] after a fall and has has been symptom free Since discharge. Yesterday, he had suddent onset sharp pain over his R Flank, 9/10 at worse without radiation. His pain has felt similar to to previous episodes of Nephrolithiasis, which improved with a hot shower. Since then the pain has waxed and waned and has not been accompanied by any nausea, vomiting, dysuria or hematuria. His pain has persisted prompting him to visit the ED. During my interview, patients pain was a 4/10 after receiving morphine in the ED. Denies any associated trauma or rash. No recent fevers, chills, chest pain, SOB , diarrhea, constipation. Has been able to tolerate PO Intake, last meal consumed in [facility]. Last BM yesterday was normal without any blood or straining. ER course was notable for: (1) Case discussed with Urology (Dr. Walls) (2) Analgesia (Ofirmev, Tramadol, Morphine) (3) CT A/P Recent Travel: Denies PAST MEDICAL HISTORY: As above PAST SURGICAL HISTORY: Triple Bypass, PPM Placement Social History: Smoking: Denies Alcohol: Rarely Drugs: Denies Ambulation: Cane/Walker Residence: Lives alone Occupation: Retired printer Family History: Father from kidney disease; mother unknown Allergies No Known Drug Allergies Allergy (Verified 12/24/18 07:23) HOME MEDICATIONS: Home Medications Medication Instructions Recorded Metoprolol Succinate [Toprol XL -] 50 mg PO DAILY 10/06/14 Simvastatin [Zocor -] 80 mg PO HS 10/06/14 Aspirin [ASA -] 81 mg PO DAILY 08/05/15 Glyburide [Micronase -] 2.5 mg PO DAILY #30 tablet 08/07/15 Tamsulosin HCl [Flomax -] 0.4 mg PO HS #30 cap.er.24h 02/03/18 metFORMIN HCL [Metformin HCl] 500 mg PO BID 12/24/18 REVIEW OF SYSTEMS As per HPI PHYSICAL EXAMINATION Vital Signs - 24 hr 12/24/18 12/24/18 12/24/18 07:05 09:44 10:00 Temperature 97.9 F 97.0 F L 97.6 F Pulse Rate 87 Pulse Rate [ 60 Left Radial] Respiratory 16 Rate Blood Pressure 134/49 L Blood Pressure 119/66 [Right Arm] O2 Sat by Pulse 95 96 Oximetry (%) 12/24/18 12/24/18 13:04 14:56 Temperature 97.9 F Pulse Rate Pulse Rate [ 77 Left Radial] Respiratory 16 16 Rate Blood Pressure Blood Pressure 131/64 [Right Arm] O2 Sat by Pulse 98 98 Oximetry (%) GENERAL: A&Ox3, NAD. Disheveled appearing with stained clothing, smells of urine and appears to have dirt on the plantar surface b/l HEAD: NCAT EYES: PERRL, EOMI EARS, NOSE, THROAT: Moist mucous membranes. NECK: Supple, No JVD LUNGS: CTAB. No wheezes, no crackles HEART: Regular rate and rhythm, normal S1 and S2 without murmur ABDOMEN: Soft, slight tenderness to palpation in the RLQ, not distended, + bowel sounds, no guarding, no rebound MUSCULOSKELETAL: No CVA tenderness, Negative Lloyds punch B/L EXTREMITIES: 2+ pulses, No peripheral edema. Long toe nails. NEUROLOGICAL: Cranial nerves II-XII intact. Normal speech. SKIN: Warm, dry. B/L LE healing Scars with chronic venous stasis changes. Healing scab wounds over dorsal surface of multiple toes Laboratory Results - last 24 hr 12/24/18 12/24/18 12/24/18 07:38 08:00 08:00 WBC 13.0 H RBC 4.01 Hgb 12.6 Hct 37.9 MCV 94.5 MCH 31.4 MCHC 33.2 RDW 15.0 Plt Count 350 D MPV 7.3 L Absolute Neuts (auto) 10.4 H Neutrophils % 80.0 D Lymphocytes % 14.1 D Monocytes % 4.4 Eosinophils % 1.0 Basophils % 0.5 Nucleated RBC % 0 Sodium 141 Potassium 4.4 Chloride 101 Carbon Dioxide 30 Anion Gap 10 BUN 23.5 H Creatinine 2.0 H Est GFR (CKD-EPI)AfAm 37.01 Est GFR (CKD-EPI)NonAf 31.93 Random Glucose 169 H Calcium 9.2 Total Bilirubin 0.6 AST 27 ALT 25 Alkaline Phosphatase 109 Total Protein 7.5 Albumin 3.1 L Lipase 128 Urine Color Yellow Urine Appearance Cloudy Urine pH 5.5 D Ur Specific [place] 1.014 Urine Protein Trace Urine Glucose (UA) 3+ H Urine Ketones Negative Urine Blood 2+ H Urine Nitrite Negative Urine Bilirubin Negative Urine Urobilinogen 0.2 Ur Leukocyte Esterase Trace Urine WBC (Auto) 12 Urine RBC (Auto) 32 Urine Casts (Auto) 4 U Epithel Cells (Auto) 3.5 Urine Bacteria (Auto) 1.9 Active Medications Acetaminophen (Tylenol -) 650 mg PO Q4H PRN PRN Reason: PAIN OR FEVER Heparin Sodium (Porcine) (Heparin -) 5,000 unit SQ Q8H-IV KRISTINE Lactated Ringer's (Lactated Ringers Solution) 1,000 mls @ 100 mls/hr IV ASDIR KRISTINE Insulin Aspart (Novolog Vial Sliding Scale -) 1 vial SQ ACHS [facility]; Protocol Morphine Sulfate (Morphine Injection -) 2 mg IVPUSH Q4H PRN PRN Reason: PAIN LEVEL 6-10 Prochlorperazine Edisylate (Compazine Injection -) 10 mg IVPB Q4H PRN PRN Reason: NAUSEA AND/OR VOMITING Tamsulosin HCl (Flomax -) 0.4 mg PO DAILY@0830 [facility] IMAGING: -CT A/P Without contrast: CT findings consistent with acute right obstructive uropathy due to a calcified stone in the distal right ureterovesical junction on the ureter side with right hydroureter and right hydronephrosis. ASSESSMENT/PLAN: 73 y/o M with PMHx of CAD, Triple Bypass, NIDDM, HTN, HLD, Obesity and Nephrolithiasis presents with R Flank Pain. #Right Flank pain -Due to Right renal obstructive uropathy seen on CT -Afebrile, Hemodynamically stable, Cr 2.0 (was 1.4 in may) -Pain control via IV Acetaminophen, Morphine -Antiemesis via Compazine -Tamsulosin 0.4mg daily -IV Hydration via LR -Urology (Dr. Bustamante) Consulted for possible intervention -Strain Urine -Monitor Urine output, Cr -Hold off on ABx use as no concurrent UTI, Afebrile -Counselled on increasing fluid intake, limiting sodium intake -Will need repeat ultrasound at ID to monitor for resolution of [place] -Hold ACEi/Thiazide in settng of elevated Cr, Hold ASA for procedure tomorrow #Leukocytosis -Likely reactive due to pain and obstruction -UA not suggestive of UTI -Monitor for signs of infection #DM -BGMs ISS ACHS #FEN -LR @ 100 mls/hr -Lytes WNL, Replete PRN -Diabetic diet; NPO after midnight #PPx -DVT: Early Ambulation Dispo: Admit to Med-Surg, Will need Med-Rec Visit type - Emergency Visit Emergency Visit: Yes ED Registration Date: 12/24/18 Care time: The patient presented to the Emergency Department on the above date and was hospitalized for further evaluation of their emergent condition. - New Patient This patient is new to me today: Yes Date on this admission: 12/24/18 - Critical Care Critical Care patient: No ATTENDING PHYSICIAN STATEMENT I saw and evaluated the patient. I reviewed the resident's note and discussed the case with the resident. I agree with the resident's findings and plan as documented. SUBJECTIVE: OBJECTIVE: ASSESSMENT AND PLAN:
[2018-12-24] MEDS ORDERED: morphine SULFATE 4 MG/ML VIAL IVPUSH PRN (15:49)
--- NOTE | 2018-12-24 15:54 | PN ---
Teaching Attending Note Name of Resident: Bridget Moore ATTENDING PHYSICIAN STATEMENT I saw and evaluated the patient. I reviewed the resident's note and discussed the case with the resident. I agree with the resident's findings and plan as documented. SUBJECTIVE:73 y/o M with PMHx of CAD, Triple Bypass, NIDDM, HTN, HLD, Obesity and Nephrolithiasis presents with R Flank Pain. sudden onset yesterday with no radiation. similar to past episodes of nephrolithasis. assoc with nausea and vomiting. had lithotripsy in the past. denies Cp, SOB, fever, chills, C/D, dyruria or urinary frequency. OBJECTIVE: Last Vital Signs Temp Pulse Resp BP Pulse Ox 97.9 F 77 16 131/64 98 12/24/18 14:56 12/24/18 14:56 12/24/18 14:56 12/24/18 14:56 12/24/18 14:56 General NAD CV S1 S2 RRR no murmur/rub/gallop Lungs CTA B/L no wheezing/rales/rhonchi Abdomen soft + R flank pain. no distnetion no suprapubic tenderness ASSESSMENT AND PLAN: 73 y/o M with PMHx of CAD, Triple Bypass, NIDDM, HTN, HLD, Obesity and Nephrolithiasis presents with R Flank Pain and found to have obstructing R nephrolithasis with hydro 1. R obstructing nephrolithasis with hydronephrosis- obstructing stone 5.6x4mm with hydro. plan for lithotripsy and stent placement in the morning. NPO after midnight, IVF, flomax with pain and nausea control. strain urine although doubt will pass on its own. urology on board. for hydro will need repeat u/s in a few weeks to monitor for resolution 2. Acute on CKF- due to obstruction with medications inducing dehydration. baseline Cr 1.4. should improved after obstruction relieved. will monitor renal function. avoid nephrotoxic agents. 3. CAD s/p CABG- cont home medications 4. DM- hold oral agents. iss and bgm 5. HTN- controlled. cont home medications 6. obesity- BMI 37.4. barriatric referral on discharge 7. DVT ppx- EAM 8. likely discharge tomorrow after procedure.
[2018-12-24 16:38] VITALS: BMI 37.4
--- NOTE | 2018-12-24 16:47 | CON.GU ---
Consult Consult Specialty:: Urology Reason for Consultation:: Right Renal Colic - History of Present Illness Chief Complaint: PT is a m73 year old male with hx of renal calculi well known to mme from before, admiiteed fro ED with rt. renal colic. Ct Scan showed 5 mm calc in the right UV jn. with obstructive Uropathy. - History Source History Provided By: Patient - Alcohol/Substance Use Hx Alcohol Use: No - Smoking History Smoking history: Unknown if ever smoked Have you smoked in the past 12 months: No Aproximately how many cigarettes per day: 0 Home Medications - Allergies Allergies/Adverse Reactions: Allergies Allergy/AdvReac Type Severity Reaction Status Date / Time No Known Drug Allergies Allergy Verified 12/24/18 07:23 - Home Medications Home Medications: Ambulatory Orders Metoprolol Succinate [Toprol XL -] 50 mg PO BID 10/06/14 Simvastatin [Zocor -] 80 mg PO HS 10/06/14 Aspirin [ASA -] 81 mg PO DAILY 08/05/15 Glyburide [Micronase -] 2.5 mg PO DAILY #30 tablet 08/07/15 Tamsulosin HCl [Flomax -] 0.4 mg PO HS #30 cap.er.24h 02/03/18 Glyburide/Metformin HCl [Glyburide-Metformin 5-500 mg] 2 each PO BID 12/24/18 Lisinopril/Hydrochlorothiazide [Zestoretic 20-12.5 mg Tablet] 2 DAILY 12/24/18 metFORMIN HCL [Metformin HCl] 500 mg PO BID 12/24/18 Physical Exam- Vital Signs: Vital Signs Temperature 98.8 F 12/24/18 16:15 Pulse Rate 64 12/24/18 16:15 Respiratory Rate 18 12/24/18 16:15 Blood Pressure 130/56 L 12/24/18 16:15 O2 Sat by Pulse Oximetry (%) 96 12/24/18 16:00 Labs: CBC, BMP 12/24/18 08:00 12/24/18 07:38 Assessment/Plan Pt feels fairly comfortable after pain medication. Pt. will be scheduled for cysto retro, ureteroscopy stone extraction and stent placement. Procedure explained to pt. He is agreement.
[2018-12-24] MEDS: TAMSULOSIN HCL 0.4 MG CAP PO SCH (17:16)
[2018-12-24] MEDS: INSULIN SLIDING SCALE (NOVOLOG) 1 VIAL SQ SCH ×2 (17:21→21:38)
[2018-12-24] MEDS ORDERED: HEPARIN NA (PORCINE) 5,000 UNITS/ML 1ML VIAL SQ SCH ×2 (18:00→22:00)
[2018-12-24] MEDS ORDERED: PT OWN MED DRAWER 7, Y5N ONE (20:43)
--- NOTE | 2018-12-24 21:18 | EKG ---
Test Reason : Blood Pressure : / mmHG Vent. Rate : 062 BPM Atrial Rate : 062 BPM P-R Int : 238 ms QRS Dur : 192 ms QT Int : 482 ms P-R-T Axes : 024 249 078 degrees QTc Int : 489 ms POOR DATA QUALITY, INTERPRETATION MAY BE ADVERSELY AFFECTED AV dual-paced rhythm with prolonged AV conduction ABNORMAL ECG WHEN COMPARED WITH ECG OF 14-MAY-2017 22:41, VENT. RATE HAS DECREASED BY 24 BPM Confirmed by OLGA DIAZ, DEVENDRA ([id number]) on 12/24/2018 9:18:48 PM Referred By: Confirmed By:DEVENDRA ESPINOZA MD
[2018-12-25] MEDS: INSULIN SLIDING SCALE (NOVOLOG) 1 VIAL SQ SCH ×2 (06:19→12:04)
[2018-12-25 07:11] LABS: INR 0.99 (0.83-1.09); PROTHROMBIN TIME (PATIENT) 11.7 SEC (9.7-13.0)
[2018-12-25 07:13] LABS: ACTIVATED PTT 28.8 SECONDS (25.2-36.5)
[2018-12-25 07:34] LABS: BASO % 0.5 % (0-2.0); EOS % 3.1 % (0-4.5); HEMATOCRIT 36.7 % (35.4-49); HEMOGLOBIN 12.3 GM/dL (11.7-16.9); LYMPH % 19.8 % (8-40); MCH 31.9 pg (25.7-33.7); MCHC 33.5 g/dl (32.0-35.9); MEAN CELL VOLUME 95.3 fl (80-96); MEAN PLT VOLUME 7.7 fl (7.5-11.1); MONO % 4.9 % (3.8-10.2); NEUT % 71.7 % (42.8-82.8); PLATELET COUNT 310 K/MM3 (134-434); RBC 3.85 M/mm3 (4.00-5.60); RDW 14.8 % (11.9-15.9); WHITE BLOOD COUNT 9.5 K/mm3 (4.0-10.0)
[2018-12-25 07:54] LABS: ALBUMIN 3.2 g/dl (3.4-5.0); BILIRUBIN,TOTAL 0.9 mg/dL (0.2-1); BLOOD UREA NITROGEN 27.3 mg/dL (7-18); CALCIUM 9.5 mg/dL (8.5-10.1); CREATININE 1.7 mg/dL (0.55-1.3); MAGNESIUM 1.8 mg/dL (1.8-2.4); PHOSPHOROUS 3.2 mg/dL (2.5-4.9); POTASSIUM 4.3 mmol/L (3.5-5.1); TOT PROT 7.3 g/dl (6.4-8.2)
[2018-12-25] MEDS: TAMSULOSIN HCL 0.4 MG CAP PO SCH (11:12)
[2018-12-25] MEDS: LACTATED RINGERS SOLUTION 1,000 ML IV SCH ×2 (11:13)
[2018-12-25 12:18] VITALS: BP 121/65; PULSE 70; TEMP 98.4
--- NOTE | 2018-12-25 13:37 | PN ---
Teaching Attending Note Name of Resident: Angélica Silva ATTENDING PHYSICIAN STATEMENT I saw and evaluated the patient. I reviewed the resident's note and discussed the case with the resident. I agree with the resident's findings and plan as documented. SUBJECTIVE:asymptomatic. passed stone last night with minimal difficultly. denies Cp, SOB, fever, chills,N/V/C/D OBJECTIVE: Last Vital Signs Temp Pulse Resp BP Pulse Ox 98.4 F 70 20 121/65 95 12/25/18 10:00 12/25/18 10:00 12/25/18 10:00 12/25/18 10:00 12/25/18 09:00 General NAD Abdomen soft NT/ND no flank tenderness ASSESSMENT AND PLAN: 73 y/o M with PMHx of CAD, Triple Bypass, NIDDM, HTN, HLD, Obesity and Nephrolithiasis presents with R Flank Pain and found to have obstructing R nephrolithasis with hydro 1. R obstructing nephrolithasis with hydronephrosis- obstructing stone 5.6x4mm with hydro. which passed on its own. stone visualized. renal u/s repeated by uro to ensure it passed. procedure cancelled at his time. for hydro will need repeat u/s in a few weeks to monitor for resolution 2. Acute on CKF- due to obstruction with medications inducing dehydration. baseline Cr 1.4. trending down. avoid nephrotoxic agents. 3. CAD s/p CABG- cont home medications 4. DM- hold oral agents. iss and bgm 5. HTN- controlled. cont home medications 6. obesity- BMI 37.4. barriatric referral on discharge 7. DVT ppx- EAM 8. d/c home. [facility]
--- NOTE | 2018-12-25 14:28 | DS ---
Physical Exam: SUBJECTIVE: Patient seen and examined. Sitting in chair comfortably. He denies dysuria, back pain, n/v. He passed stone overnight. OBJECTIVE: Vital Signs Period Temp Pulse Resp BP Sys/[place] Pulse Ox Last 24 Hr 97.6 F-98.8 F 60-112 16-20 114-138/56-70 95-98 PHYSICAL EXAM GENERAL: The patient is awake, alert, and fully oriented, in no acute distress. HEAD: Normal with no signs of trauma. EYES: PERRL, extraocular movements intact, sclera anicteric, conjunctiva clear. ENT: Ears normal, nares patent, moist mucous membranes. NECK: Trachea midline, full range of motion, supple. LUNGS: Breath sounds equal, clear to auscultation bilaterally, no wheezes, no crackles, no accessory muscle use. HEART: Regular rate and rhythm, S1, S2 without murmur, rub or gallop. ABDOMEN: Soft, nontender, nondistended, normoactive bowel sounds EXTREMITIES: 2+ pulses, warm, well-perfused, no edema. NEUROLOGICAL: Cranial nerves II through XII grossly intact. Normal speech, gait not observed. PSYCH: Normal mood, normal affect. SKIN: Warm, dry, normal turgor, no rashes or lesions noted. LABS Laboratory Results - last 24 hr 12/24/18 12/24/18 12/25/18 17:17 21:36 06:13 WBC RBC Hgb Hct MCV MCH MCHC RDW Plt Count MPV Absolute Neuts (auto) Neutrophils % Lymphocytes % Monocytes % Eosinophils % Basophils % Nucleated RBC % PT with INR INR PTT (Actin FS) Sodium Potassium Chloride Carbon Dioxide Anion Gap BUN Creatinine Est GFR (CKD-EPI)AfAm Est GFR (CKD-EPI)NonAf POC Glucometer 169 138 131 Random Glucose Calcium Phosphorus Magnesium Total Bilirubin AST ALT Alkaline Phosphatase Total Protein Albumin Blood Type Antibody Screen 12/25/18 12/25/18 12/25/18 06:15 06:15 06:15 WBC 9.5 RBC 3.85 L Hgb 12.3 Hct 36.7 MCV 95.3 MCH 31.9 MCHC 33.5 RDW 14.8 Plt Count 310 MPV 7.7 Absolute Neuts (auto) 6.8 Neutrophils % 71.7 Lymphocytes % 19.8 D Monocytes % 4.9 Eosinophils % 3.1 D Basophils % 0.5 Nucleated RBC % 0 PT with INR 11.70 INR 0.99 PTT (Actin FS) 28.8 Sodium 140 Potassium 4.3 Chloride 100 Carbon Dioxide 29 Anion Gap 12 BUN 27.3 H Creatinine 1.7 H Est GFR (CKD-EPI)AfAm 45.04 Est GFR (CKD-EPI)NonAf 38.86 POC Glucometer Random Glucose 122 H Calcium 9.5 Phosphorus 3.2 Magnesium 1.8 Total Bilirubin 0.9 AST 17 ALT 21 Alkaline Phosphatase 106 Total Protein 7.3 Albumin 3.2 L Blood Type Antibody Screen 12/25/18 12/25/18 06:15 11:58 WBC RBC Hgb Hct MCV MCH MCHC RDW Plt Count MPV Absolute Neuts (auto) Neutrophils % Lymphocytes % Monocytes % Eosinophils % Basophils % Nucleated RBC % PT with INR INR PTT (Actin FS) Sodium Potassium Chloride Carbon Dioxide Anion Gap BUN Creatinine Est GFR (CKD-EPI)AfAm Est GFR (CKD-EPI)NonAf POC Glucometer 100 Random Glucose Calcium Phosphorus Magnesium Total Bilirubin AST ALT Alkaline Phosphatase Total Protein Albumin Blood Type A POSITIVE Antibody Screen Negative HOSPITAL COURSE: Mr. Felix is a 73y/o male with CAD s/p CABG, HTN, HLD, DM, and hx of nephrolithiasis who presents with non-radiating right flank pain for less than 1 day. He was not having associated fever, chills, n/v. CT showed 5.6x4.0cm stone at distal R UVJ with hydroureter and hydronephrosis. He was given fluids and pain control. Nephrology was consulted, but pt passed stone spontaneously before stone extraction. His symptoms fully resolved prior to discharge. He was advised to f/u with Dr. Bustamante. He was stable for d/c. Date of Admission:12/24/18 Date of Discharge: 12/25/18 Minutes to complete discharge: 35 Discharge Summary Reason For Visit: HYDRONEPHROSIS; RENAL COLIC ON RIGHT SIDE Current Active Problems Hydronephrosis (Acute) Renal colic on right side (Acute) Condition: Stable - Instructions Diet, Activity, Other Instructions: Hospital Visit: You were admitted to the hospital because you were having extreme back pain. A CT scan confirmed you had a kidney stone. You were able to pass the kidney stone on your own. Your urine showed you did not have a bacterial urinary tract infection. You are being discharged home. Medications: You may continue your home medications as directed. Follow Up: Follow up with your primary care physician at the [place] within one- two days of hospital discharge. Please follow up with Dr. Bustamante next Saturday for your appointment. A referral has been provided. Make sure to call the office to schedule the follow up appointment. You will require follow up ultrasound of your kidneys. Discuss with the urologist at your follow up appointment. Follow up with bariatric surgeon Dr. Kirkland to discuss possible bariatric surgery to aid with weight loss. Other instructions: Return to the nearest emergency room if you have any of the following: worsening symptoms, extreme back pain, abdominal pain, inability to urinate, pain or blood with urination, vomiting or fever above 101. Referrals: Tim Kirkland MD [Staff Physician] - Theresa Bustamante MD [Staff Physician] - 12/30/18 (call to make an appointment for next Saturday ) Disposition: HOME - Home Medications Comprehensive Discharge Medication List: Ambulatory Orders Metoprolol Succinate [Toprol XL -] 50 mg PO BID 10/06/14 Simvastatin [Zocor -] 40 mg PO HS 10/06/14 Aspirin [ASA -] 81 mg PO DAILY 08/05/15 Tamsulosin HCl [Flomax -] 0.4 mg PO HS #30 cap.er.24h 02/03/18 Amlodipine Besylate 5 mg PO DAILY 12/24/18 Glyburide/Metformin HCl [Glyburide-Metformin 5-500 mg] 2 each PO BID 12/24/18 Lisinopril/Hydrochlorothiazide [Zestoretic 20-12.5 mg Tablet] 2 tab PO DAILY 08/08 This patient is new to me today: Yes Date on this admission: 12/25/18 Emergency Visit: Yes ED Registration Date: 12/24/18 Care time: The patient presented to the Emergency Department on the above date and was hospitalized for further evaluation of their emergent condition. Critical Care patient: No - Discharge Referral Referred to [facility] Med [facility] No ATTENDING PHYSICIAN STATEMENT I saw and evaluated the patient. I reviewed the resident's note and discussed the case with the resident. I agree with the resident's findings and plan as documented. SUBJECTIVE: OBJECTIVE: ASSESSMENT AND PLAN:
== END 2018-12-25 15:37 | disposition home or self-care (01) | DRG 694 ==
LOC: JER 05:33 → JERBED 11:52 → J5S 15:35
PROVIDERS: ADMIT Internal Medicine; ATTEND Internal Medicine
DX: N13.2 Hydronephrosis with renal and ureteral calculous obstruction (principal); N17.9 Acute kidney failure, unspecified; D64.9 Anemia, unspecified; E78.00 Pure hypercholesterolemia, unspecified; I25.10 Atherosclerotic heart disease of native coronary artery without angina pectoris; E66.8 Other obesity; Z68.37 Body mass index [BMI] 37.0-37.9, adult; D72.829 Elevated white blood cell count, unspecified; I12.9 Hypertensive chronic kidney disease with stage 1 through stage 4 chronic kidney disease, or unspecified chronic kidney disease; E11.22 Type 2 diabetes mellitus with diabetic chronic kidney disease; N18.9 Chronic kidney disease, unspecified; Z95.1 Presence of aortocoronary bypass graft; Z95.0 Presence of cardiac pacemaker
CPT/HCPCS: 36415; 74176-TC; 76775-TC; 80053; 81003; 82962; 83690; 83735; 84100; 85025; 85610; 85730; 86850; 86900; 86901; 87086; 93005; 93010; 99285-25; J0131